=== PATIENT | female | born 1965 | race Caucasian/White ===

== ENCOUNTER 2017-11-29 02:31 | Emergency (ER) | payer BC ==
[2017-11-29] MEDS ORDERED: ALPRAZolam TAB* 0.5 MG PO ONE (02:57)
--- NOTE | 2017-11-29 03:58 | ED ---
Mily Aquino Gabriel scribbella for Miko Piper MD on 11/29/17 at 0312 . Shortness of Breath - HPI Summary HPI Summary: This patient is a 52 year old F presenting to [facility] accompanied by her with a chief complaint of SOB when she woke up in the middle of the night tonight. The patient rates the pain 0/10 in severity. Patient reports cough and anxiety. Patient denies fever. Pt states she has had a viral URI for the past few weeks. - History of Current Complaint Chief Complaint: EDUpperRespComplaint Time Seen by Provider: 11/29/17 02:46 Hx Obtained From: Patient Onset/Duration: Lasting Weeks, Still Present Timing: Constant Current Severity: Moderate Dyspnea At: Rest Associated Signs & Symptoms: Cough (Nonproductive) - Allergy/Home Medications Allergies/Adverse Reactions: Allergies Allergy/AdvReac Type Severity Reaction Status Date / Time erythromycin base Allergy Unknown Verified 11/29/17 03:21 Reaction Details Penicillins Allergy Unknown Verified 11/29/17 03:21 Reaction Details vancomycin Allergy Unknown Verified 11/29/17 03:21 Reaction Details PMH/Surg Hx/FS Hx/Imm Hx Endocrine/Hematology History: Denies: Hx Diabetes Cardiovascular History: Reports: Other Cardiovascular Problems/Disorders - mitral valve repair 2010 Denies: Hx Auto Implanted Cardiovert Defib, Hx Hypertension, Hx Pacemaker/ICD Respiratory History: Denies: Hx Chronic Bronchitis, Hx Chronic Obstructive Pulmonary Disease (COPD ) History: Denies: Hx Renal Disease Sensory History: Denies: Hx Hearing Aid Psychiatric History: Denies: Hx Attention Deficit Hyperactivity Disorder, Hx Panic Disorder - Cancer History Hx Chemotherapy: No Hx Radiation Therapy: No - Surgical History Surgery Procedure, Year, and Place: BRAIN ANEURYSM - CLIPPED NOV 29 2007 PATIENT WILL NEED TO GET US INFORMATION ON COIL; MITRAL VALVE PROLAPSE REPAIR MAY 19 2011([facility] CONDITIONAL 5 OK UP TO 3T UNDER THE FOLLOWING CONDITIONS: SPATIAL GRADIENT 525G/CM AND 2.0 W/KG FOR 15 MINS OF SCANNING. PATIENT READ THIS TO ME FROM HER CARD. THIS IS NOT SAFE FOR EITHER OF OUR MACHINES DUE TO OUR SPATIAL GRADIENTS BEING TOO HIGH; Hysterectomy 03/2013 Infectious Disease History: No Infectious Disease History: Denies: Traveled Outside the [place] in Last 30 Days - Family History Known Family History: Negative: Renal Disease, Respiratory Disease, Seizure Disorder - Social History Lives: With Family Alcohol Use: None Substance Use Type: Reports: None Hx Tobacco Use: No Smoking Status (MU): Never Smoked Tobacco Review of Systems Negative: Fever Positive: Shortness Of Breath, Cough Positive: Anxious All Other Systems Reviewed And Are Negative: Yes Physical Exam - Summary Physical Exam Summary: VITAL SIGNS: Reviewed. GENERAL: Patient is a well-developed and nourished female who is lying comfortable in the stretcher. Patient is not in any acute respiratory distress. Seems anxious HEAD AND FACE: No signs of trauma. No ecchymosis, hematomas or skull depressions. No sinus tenderness. EYES: PERRLA, EOMI x 2, No injected conjunctiva, no nystagmus. EARS: Hearing grossly intact. Ear canals and tympanic membranes are within normal limits. MOUTH: Oropharynx within normal limits. NECK: Supple, trachea is midline, no adenopathy, no JVD, no carotid bruit, no c- spine tenderness, neck with full ROM. CHEST: Symmetric, no tenderness at palpation LUNGS: Clear to auscultation bilaterally. No wheezing or crackles. CVS: Regular rate and rhythm, S1 and S2 present, no murmurs or gallops appreciated. ABDOMEN: Soft, non-tender. No signs of distention. No rebound no guarding, and no masses palpated. Bowel sounds are normal. EXTREMITIES: FROM in all major joints, no edema, no cyanosis or clubbing. NEURO: Alert and oriented x 3. No acute neurological deficits. Speech is normal and follows commands. SKIN: Dry and warm Triage Information Reviewed: Yes Vital Signs On Initial Exam: Initial Vitals Temp Pulse Resp BP Pulse Ox 97.3 F 88 16 182/111 99 11/29/17 02:47 11/29/17 02:47 11/29/17 02:47 11/29/17 02:47 11/29/17 02:47 Vital Signs Reviewed: Yes Diagnostics - Vital Signs Vital Signs Temp Pulse Resp BP Pulse Ox 11/29/17 03:05 20 11/29/17 02:47 97.3 F 88 16 182/111 99 - Laboratory Lab Statement: Any lab studies that have been ordered have been reviewed, and results considered in the medical decision making process. - Radiology CXR Radiology Interpretation Completed By: ED Physician - No acute process. Pending official report Re-Evaluation - Re-Evaluation First Eval Re-Evaluation Time: 03:48 Change: Improved Comment: Pt is feeling better after medications. Course/Dx - Course Assessment/Plan: This patient is a 52 year old F presenting to [facility] accompanied by her with a chief complaint of SOB when she woke up in the middle of the night tonight. The patient rates the pain 0/10 in severity. Patient reports cough and anxiety. Patient denies fever. Pt states she has had a viral URI for the past few weeks. Dx anxiety. In the ED course the patient was given anxiety and the pt is feeling better. Patient will be discharged and follow up from PCP. The patient is agreeable with this plan. - Diagnoses Provider Diagnoses: Anxiety Discharge - Sign-Out/Discharge Documenting (check all that apply): Discharge/Admit/Transfer - Discharge Plan Condition: Stable Disposition: HOME Referrals: Tiffany Forman MD [Primary Care Provider] - 3 Days Additional Instructions: RETURN TO THE ER FOR ANY NEW OR WORSENING SYMPTOMS The documentation as recorded by the Mily roman Gabriel accurately reflects the service I personally performed and the decisions made by me, Miko Piper MD.
[2017-11-29 04:20] VITALS: BP 131/81
--- NOTE | 2017-11-29 08:15 | RAD ---
INDICATION: Short of breath COMPARISON: None TECHNIQUE: An AP portable view obtained at 0312 hours is submitted. FINDINGS: Bones/Soft Tissues: There are no acute bony findings. Cardiomediastinal: The cardiomediastinal silhouette is normal. Lungs: There are no infiltrates. Pleura: There are no pleural effusions. Other: None IMPRESSION: NO ACTIVE DISEASE
== END 2017-11-29 04:18 | disposition home or self-care (01) ==
LOC: ED 02:31
DX: F41.9 Anxiety disorder, unspecified (principal); R06.02 Shortness of breath; Z88.0 Allergy status to penicillin; Z88.3 Allergy status to other anti-infective agents
CPT/HCPCS: 71045; 99282; A9270-GY

== ENCOUNTER 2024-05-09 01:31 | Observation (INO) ==
[2024-05-09 01:49] LABS: ABS Basophils 0.1 10^3/uL (0.0-0.1); ABS Eosinophils 0.8 10^3/uL (0.0-0.5); ABS Lymphocytes 4.3 10^3/uL (1.0-4.8); ABS Neutrophils 5.8 10^3/uL (1.5-7.6); ABS Nucleated RBC 0.01 10^3/ul; Eosinophil % 6.5 %; Hematocrit 37.7 % (35-45); Hemoglobin 12.8 g/dL (11.5-14.3); Lymphocyte % 36.1 %; Mean Corpuscular Volume 85.1 fL (80-97); Mean Platelet Volume 7.2 fL (7.5-11.2); Platelet Count 281 10^3/uL (150-450); Red Blood Count 4.43 10^6/uL (3.63-4.92)
[2024-05-09 02:29] LABS: Albumin 4.4 g/dL (3.2-5.2); Albumin/Globulin Ratio 1.8 (1-3); Calcium 9.6 mg/dL (8.6-10.3); Creatinine, Serum 1.17 mg/dL (0.51-0.95); Globulin 2.5 g/dL (2-4); Potassium 3.7 mmol/L (3.5-5.0); Total Bilirubin 0.5 mg/dL (0.2-1.0); Total Protein 6.9 g/dL (6.4-8.9); eGFR CKD-EPI 53.4 (>60)
[2024-05-09 03:26] LABS: High Sensitivity Troponin 1 Hr 11 pg/mL (<15)
[2024-05-09] MEDS: Lactated Ringers 1000 ml BAG 1,000 ML IV SCH (06:52)
[2024-05-09 06:57] LABS: ABS Eosinophils 0.4 10^3/uL (0.0-0.5); ABS Lymphocytes 2.3 10^3/uL (1.0-4.8); ABS Monocytes 0.7 10^3/uL (0.0-0.9); ABS Nucleated RBC 0.01 10^3/ul; Eosinophil % 4.3 %; Hematocrit 38.5 % (35-45); Hemoglobin 12.9 g/dL (11.5-14.3); Mean Corpuscular Hemoglobin 28.8 pg (27-33); Mean Corpuscular Hgb Conc 33.5 g/dL (31-36); Mean Corpuscular Volume 86.1 fL (80-97); Mean Platelet Volume 7.2 fL (7.5-11.2); Platelet Count 277 10^3/uL (150-450); Red Blood Count 4.47 10^6/uL (3.63-4.92); White Blood Count 10.5 10^3/uL (3.8-11.8)
[2024-05-09 07:35] LABS: Calcium 9.6 mg/dL (8.6-10.3); Creatinine, Serum 0.88 mg/dL (0.51-0.95); Potassium 4.5 mmol/L (3.5-5.0); eGFR CKD-EPI 75.2 (>60)
[2024-05-10 13:47] VITALS: BP 116/83
[2024-05-10 14:12] LABS: HDL Cholesterol 49.6 mg/dL
== END 2024-05-10 14:15 | disposition home or self-care (01) ==
LOC: ED 01:31 → EDHOLD 01:31 → MEDTELE 05:36
PROVIDERS: ADMIT Internal Medicine; ATTEND Internal Medicine